=== PATIENT | female | born 1985 | race Caucasian/White ===

== ENCOUNTER → 2021-09-12 13:24 | Outpatient (BNVA) | payer BC, SELFPAY | PROVIDERS: Visit Provider Nurse Practitioner Family | DX: J18.9 Pneumonia, unspecified organism (principal); R05.9 Cough, unspecified | CPT/HCPCS: 71046 ==

== ENCOUNTER → 2021-09-13 09:05 | Outpatient (BNVA) | payer BC, SELFPAY | PROVIDERS: Visit Provider Nurse Practitioner Family | DX: J18.9 Pneumonia, unspecified organism (principal); R05.9 Cough, unspecified; Z87.81 Personal history of (healed) traumatic fracture; R19.7 Diarrhea, unspecified; E66.9 Obesity, unspecified; R53.83 Other fatigue | CPT/HCPCS: 80053; 80061; 84443; 85025 ==

== ENCOUNTER 2021-11-15 14:41 | Outpatient (CLI) | payer BC, SELFPAY ==
[2021-11-15 14:59] VITALS: BP 136/82; PULSE 95; RESP 16; TEMP 36.9; O2SAT 99; BMI 29.7
--- NOTE | 2021-11-15 15:33 | CTR_ITS ---
PROCEDURE INFORMATION: Exam: CT Head Without Contrast Exam date and time: 11/15/2021 3:33 PM Age: 36 years old Clinical indication: Pain; Headache not specified; Patient HX: --angeles and yellow fluid coming out of nose TECHNIQUE: Imaging protocol: Computed tomography of the head without contrast. Axial, coronal and sagittal reformatted images were created and reviewed. Radiation optimization: All CT scans at this facility use at least one of these dose optimization techniques: automated exposure control; mA and/or kV adjustment per patient size (includes targeted exams where dose is matched to clinical indication); or iterative reconstruction. COMPARISON: No relevant prior studies available. RADIATION DOSE METRICS: Total DLP (mGy-cm): 820.06 FINDINGS: Brain: No CT evidence of acute intracranial hemorrhage or acute territorial infarction. No significant mass effect or midline shift. Basal cisterns patent. Cerebral ventricles: Normal in size and configuration. Paranasal sinuses: Unremarkable. No fluid levels. Mastoid air cells: Grossly unremarkable. Bones/joints: No acute osseous abnormality. Soft tissues: Grossly unremarkable. CT/CT head wo con* [id number] IMPRESSION: No CT evidence of acute intracranial pathology.
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
--- NOTE | 2021-12-19 13:51 | XR_ITS ---
WS: [id number] Exam: XR chest 2V* [id number] Date/Time of Exam: 12/19/2021 1:51 PM Reason For Exam: J45.909 - Unspecified asthma, uncomplicated Comparison 09/12/2021. The lungs are clear and fully expanded. Normal cardiomediastinal silhouette. No pleural effusion. Bon y structures are intact. XR/XR chest 2V* [id number] IMPRESSION: 1. Normal chest.
== END 2021-12-19 13:45 | disposition home or self-care (01) ==
LOC: ER 17:13 → RAD 12-19 13:47
PROVIDERS: Emergency Provider Family Medicine; PCP Registered Nurse; Visit Provider Registered Nurse
DX: R51.9 Headache, unspecified (principal); J30.9 Allergic rhinitis, unspecified; J45.909 Unspecified asthma, uncomplicated
CPT/HCPCS: 70450; 71046; 99281

== ENCOUNTER 2021-12-27 12:22 | Outpatient (CLI) | payer BC, SELFPAY ==
--- NOTE | 2021-12-27 12:27 | XR_ITS ---
WS: [id number] Cervical spine, 3 views, 12/27/2021 Clinical Data: M54.2 - Cervicalgia Comparison: None. Findings: No compression fractures are seen. The disc heights are normal. There is no prevertebral so ft tissue swelling. The odontoid is unremarkable. The soft tissues of the neck and the lung apices ar e normal. XR/XR cervical spine 3V* [id number] Impression: Negative cervical spine.
== END 2021-12-27 12:23 | disposition home or self-care (01) ==
LOC: RAD 12:23
PROVIDERS: PCP Registered Nurse; Visit Provider Registered Nurse
DX: M54.2 Cervicalgia (principal); M54.9 Dorsalgia, unspecified; G89.29 Other chronic pain
CPT/HCPCS: 72040

== ENCOUNTER 2022-02-07 14:22 | Outpatient (RCR) | payer BC, SELFPAY | END 2022-03-01 23:59 | disposition home or self-care (01) | LOC: SPT 14:22 | PROVIDERS: PCP Registered Nurse; Referring Provider Registered Nurse; Visit Provider Registered Nurse | DX: G89.29 Other chronic pain (principal); M54.2 Cervicalgia; R51.9 Headache, unspecified | CPT/HCPCS: 97110; 97161 ==

== ENCOUNTER 2022-02-22 09:26 | Outpatient (CLI) | payer BC, SELFPAY ==
--- NOTE | 2022-02-22 09:30 | MR_ITS ---
WS: [id number] MRI CERVICAL SPINE NONCONTRAST HISTORY: M54.2 - Cervicalgia COMPARISON: None available. Technique: Multiplanar, multisequence noncontrast imaging of the cervical spine. Straightening of the normal cervical lordosis. Signal within the cervical cord is normal. Visualized posterior fossa is unremarkable. Craniocervical junction, C1 and C2 relationship, odontoid process and soft tissues are normal. C2-C3: Normal. C3-C4: Very small central disc protrusion with no stenosis. C4-C5: Very small central disc protrusion. No stenosis. C5-C6: Central to LEFT paracentral disc protrusion effacing the CSF and causes mild narrowing of the proximal LEFT foramen. Vertebral body osteophytes are also contributing to the mild foraminal stenosi s. C6-C7: Normal. C7-T1: Normal. Paraspinal soft tissue are normal. MR/MR cervical spin wo con* [id number] IMPRESSION: 1. Small central to LEFT paracentral disc protrusion at C5-6 with mild effacem ent of CSF. No contact on the cervical cord. 2. Mild foraminal narrowing at C5-6 due to osteophytes. 3. Very small central disc protrusions at C3-4 and C4-5.
== END 2022-02-22 09:27 | disposition home or self-care (01) ==
PROVIDERS: PCP Registered Nurse; Visit Provider Registered Nurse
DX: M50.222 Other cervical disc displacement at C5-C6 level (principal); M54.2 Cervicalgia; G89.29 Other chronic pain; Z87.828 Personal history of other (healed) physical injury and trauma
CPT/HCPCS: 72141

== ENCOUNTER → 2022-12-19 10:45 | Outpatient (BNVA) | payer BC, SELFPAY | PROVIDERS: PCP Registered Nurse; Visit Provider Registered Nurse | DX: Z30.42 Encounter for surveillance of injectable contraceptive (principal) | CPT/HCPCS: 81025 ==

== ENCOUNTER → 2023-06-26 13:47 | Outpatient (BNVA) | payer MEDICAID, SELFPAY | PROVIDERS: PCP Registered Nurse; Visit Provider Registered Nurse | DX: Z30.42 Encounter for surveillance of injectable contraceptive (principal) | CPT/HCPCS: 81025 ==